=== PATIENT | female | born 2000 | race Caucasian/White ===

== ENCOUNTER 2022-11-09 14:54 | Emergency (ER) | payer OTHER ==
[2022-11-09 15:36] LABS: Pregnancy Test - Urine (BHCG) Negative (Negative); Pregu Control Background? CLEAR/WHITE (CLR/WHITE); Pregu Control Bar Appear? YES (CONTROL BAR); Specific Gravity 1.015 (1.002-1.036)
[2022-11-09] MEDS ORDERED: Morphine 4 MG/ML VIAL ONE (15:42)
[2022-11-09] MEDS ORDERED: Ondansetron ODT 4 MG TAB ONE (15:43)
== END 2022-11-09 17:05 | disposition home or self-care (01) ==
LOC: CSHERS 14:54
DX: L02.415 Cutaneous abscess of right lower limb (principal); L02.215 Cutaneous abscess of perineum; F17.290 Nicotine dependence, other tobacco product, uncomplicated
CPT/HCPCS: 10060; 81025; 96372; J2270; Q0162

== ENCOUNTER 2024-10-07 12:25 | Day surgery (SDC) | payer MEDICAID ==
[2024-10-07 12:54] VITALS: BMI 46.0
[2024-10-07 13:12] LABS: Creatinine, Urine 218.82 mg/dL (47-110)
[2024-10-07] MEDS ORDERED: Acetaminophen 325 MG TAB PO PRN (15:33)
[2024-10-07 15:44] LABS: Bilirubin Neg (Negative); Blood, Urine 25 (Negative); Clarity Cloudy (Clear); Glucose, Urine (Dipstick) Normal (Negative); Ketone, Urine Negative (Negative); Leukocyte Negative (Negative); Nitrite Negative (Negative); Protein, Urine (Dipstick) 30 mg/dl (Neg-Trace); Urobilinogen Normal mg/dL (Less than 2)
[2024-10-07] MEDS ORDERED: Acetaminophen 500 MG TAB PO PRN (15:49)
[2024-10-07] MEDS ORDERED: Calcium Gluc 4.6 MEQ/10 ML (100 MG/ML) SLOW IVP PRN ×2 (15:50→21:14)
[2024-10-07] MEDS ORDERED: Labetalol HCl 100 MG/20 ML VIAL SLOW IVP PRN ×2 (15:50)
[2024-10-07] MEDS: Clindamycin 150 MG CAP PO SCH ×2 (16:37→22:00)
[2024-10-07 16:49] LABS: CAUTI Indications for Culture Pregnancy; RBC/HPF 0-3 HPF (0-3); WBC/HPF 0-3 HPF (0-3)
[2024-10-07 16:50] LABS: Bacteria/HPF 2+ HPF (None Seen)
[2024-10-07 16:52] LABS: Urine Culture Reflex Yes Yes
[2024-10-07] MEDS: hydrALAZINE 20 MG/ML VIAL SLOW IVP PRN (20:47)
[2024-10-07] MEDS: Labetalol HCl 100 MG TAB PO SCH (20:53)
[2024-10-07] MEDS: Labetalol HCl 100 MG/20 ML VIAL SLOW IVP PRN (21:10)
[2024-10-07 21:12] VITALS: BP 191/84
[2024-10-07] MEDS ORDERED: Lorazepam 2 MG/ML VIAL SLOW IVP PRN (21:14)
[2024-10-07] MEDS ORDERED: Magnesium Sulfate 20 gm/500 ml 20 GM/500 ML BAG IVPB SCH (21:15)
[2024-10-07] MEDS: Magnesium Sulfate 20 gm/500 ml 20 GM/500 ML BAG ONE (21:19)
[2024-10-07] MEDS: Ondansetron PF 4 MG/2 ML Vial IVP SCH (22:15)
[2024-10-07] MEDS: Acetaminophen 500 MG TAB PO SCH (22:16)
[2024-10-07] MEDS: Betamet Acet/Betamet Na Ph 30 MG/5 ML VIAL IM SCH (22:17)
[2024-10-07] MEDS: NIFEdipine XL 30 MG ER.TAB PO SCH (23:04)
== END 2024-10-08 00:28 | disposition short-term general hospital (02) ==
LOC: CSHLD/OP 12:25 → CSHLD 12:26 → CSHLD/OP 10-08 00:28
PROVIDERS: ATTEND Internal Medicine
DX: O99.891 Other specified diseases and conditions complicating pregnancy (principal); R03.0 Elevated blood-pressure reading, without diagnosis of hypertension; O99.343 Other mental disorders complicating pregnancy, third trimester; F41.9 Anxiety disorder, unspecified; O23.593 Infection of other part of genital tract in pregnancy, third trimester; B95.8 Unspecified staphylococcus as the cause of diseases classified elsewhere; O99.013 Anemia complicating pregnancy, third trimester; D57.40 Sickle-cell thalassemia without crisis; O99.213 Obesity complicating pregnancy, third trimester; E66.9 Obesity, unspecified; Z3A.34 34 weeks gestation of pregnancy; Z91.030 Bee allergy status; Z79.899 Other long term (current) drug therapy
CPT/HCPCS: 51702; 76815; 76819; 81001; 82570; 84156; 87077; 87086; 87186; 87480; 87510; 87660; 99285; J0360; J0702; J2405; J3475

== ENCOUNTER 2025-04-05 14:31 | Emergency (ER) | payer MEDICAID, OTHER ==
[~2025-04-05 14:31] MED LIST: Iopamidol 300 61% 100 ML VIAL FS ONE
[2025-04-05 15:12] LABS: Glucose, Urine (Dipstick) Normal (Negative); Leukocyte Negative (Negative); Protein, Urine (Dipstick) 30 mg/dl (Neg-Trace); Specific Gravity, Urine 1.025 (1.005-1.030)
[2025-04-05 15:23] LABS: Bacteria/HPF 1+ HPF (None Seen); CAUTI Indications for Culture Acute Hematuria; Mucous/LPF Few LPF (<2+); RBC/HPF 0-3 HPF (0-3); Urine Culture Reflex No No; WBC/HPF 0-3 HPF (0-3)
[2025-04-05 15:50] LABS: BHCG - Serum Negative (NEGATIVE); Pregs Control Background? CLEAR/WHITE (CLR/WHITE); Pregs Control Bar Appear? YES (CONTROL BAR)
[2025-04-05 15:56] LABS: #Basophils 0.04 10x3/uL (0.0-0.2); #Eosinophils 0.12 10x3/uL (0.0-0.5); #Monocytes 0.64 10x3/uL (0.0-1.1); #Neutrophils 8.76 10x3/uL (1.5-8.4); %Basophils 0.3 % (0.0-2.0); %Eosinophils 1.0 % (0.0-6.0); %Lymphocytes 19.7 % (18.0-47.0); %Monocytes 5.3 % (0.0-10.0); %Neutrophils 73.0 % (40.0-75.0); ALT (SGPT) 31 U/L (Less than 34); AST (SGOT) 21 U/L (11-34); Albumin 3.8 g/dL (3.1-4.5); Alkaline Phosphatase 57 U/L (40-110); Anion Gap 13 mmol/L (10-20); BUN (Urea Nitrogen) 11 mg/dL (7.0-18.7); Bilirubin, Total 0.5 mg/dL (0.3-1.2); Calc. Creatinine Clearance 0 mL/min (70-130); Calcium 9.4 mg/dL (7.8-10.44); Carbon Dioxide 21 mmol/L (22-29); Chloride 110 mmol/L (98-107); Globulin 4.2 g/dL (2.4-3.5); Glucose 140 mg/dL (70-105); Hematocrit 41.9 % (34.9-44.5); Hemoglobin 13.2 g/dL (12.0-15.5); Mean Corpuscular Hemoglobin 26.7 pg (27.0-33.0); Mean Corpuscular Volume 84.6 fL (81.6-98.3); Platelet Count 396 10x3/uL (150-450); Potassium 3.8 mmol/L (3.5-5.1); Red Blood Cell (RBC) Count 4.95 10x6/uL (3.90-5.03); Sodium 140 mmol/L (136-145); White Blood Cell (WBC) Count 12.01 10x3/uL (3.5-10.5)
[2025-04-05] MEDS ORDERED: Ketorolac Tromethamine 30 MG (1 mL) VIAL ONE (16:09)
[2025-04-05] MEDS ORDERED: Ondansetron PF 4 MG/2 ML Vial ONE (16:09)
== END 2025-04-05 18:05 | disposition home or self-care (01) ==
LOC: EEVIPCON 14:31 → CSHERS 14:31
DX: K76.0 Fatty (change of) liver, not elsewhere classified (principal); M54.50 Low back pain, unspecified; I10 Essential (primary) hypertension; F17.290 Nicotine dependence, other tobacco product, uncomplicated
CPT/HCPCS: 74177; 80053; 81001; 84703; 85025; 87480; 87491; 87510; 87591; 87660; 96374; 96375; J1885; J2405; Q9967